=== PATIENT | female | born 1975 | race Caucasian/White ===

== ENCOUNTER → 2016-08-14 | Outpatient (CLI) | payer OTHER ==
[2016-08-14 13:11] LABS: MEAN CORPUSCULAR HEMOGLOBIN 29.6 pg (27.0-33.0); MEAN CORPUSCULAR VOLUME 87.1 fl (80.0-96.0); RED CELL DISTRIBUTION WIDTH 12.2 % (11.5-14.5); WHITE BLOOD COUNT 5.2 K/mm3 (4.0-10.0)
[2016-08-14 13:49] LABS: VITAMIN B12 LEVEL 709 PG/ML (247-911)
[2016-08-14 13:57] LABS: ALBUMIN 3.9 GM/DL (3.2-5.2); ALBUMIN/GLOBULIN RATIO 1.18 (1.00-1.93); ALKALINE PHOSPHATASE 38 U/L (45-117); ALT/SGPT 21 U/L (12-78); ANION GAP 5 MEQ/L (8-16); AST/SGOT 15 U/L (15-37); BILIRUBIN,TOTAL 0.7 MG/DL (0.2-1.0); BLOOD UREA NITROGEN 8 MG/DL (7-18); CALCIUM LEVEL 8.9 MG/DL (8.5-10.1); CARBON DIOXIDE LEVEL 29 MEQ/L (21-32); CHLORIDE LEVEL 107 MEQ/L (98-107); CHOLESTEROL LEVEL 208 MG/DL (<200); CREATININE FOR GFR 0.62 MG/DL (0.55-1.02); GLOMERULAR FILTRATION RATE > 60.0 (>58); GLUCOSE, FASTING 85 MG/DL (70-105); MAGNESIUM LEVEL 2.5 MG/DL (1.8-2.4); POTASSIUM SERUM 4.4 MEQ/L (3.5-5.1); SODIUM LEVEL 141 MEQ/L (136-145); TOTAL PROTEIN 7.2 GM/DL (6.4-8.2); TRIGLYCERIDES LEVEL 103 MG/DL (<150)
== END ==
LOC: M SMT 08:04
PROVIDERS: ATTEND Nurse Practitioner Adult Health
DX: Z00.00 Encounter for general adult medical examination without abnormal findings (principal)

== ENCOUNTER → 2017-01-17 | Outpatient (CLI) | payer OTHER ==
[2017-01-17 08:35] LABS: MEAN CORPUSCULAR HEMOGLOBIN 31.7 pg (27.0-33.0); MEAN CORPUSCULAR HGB CONC 36.1 g/dl (32.0-36.5); MEAN CORPUSCULAR VOLUME 87.7 fl (80.0-96.0); RED CELL DISTRIBUTION WIDTH 11.7 % (11.5-14.5); WHITE BLOOD COUNT 4.8 K/mm3 (4.0-10.0)
[2017-01-17 08:44] LABS: ANION GAP 5 MEQ/L (8-16); BLOOD UREA NITROGEN 7 MG/DL (7-18); CALCIUM LEVEL 8.1 MG/DL (8.5-10.1); CARBON DIOXIDE LEVEL 29 MEQ/L (21-32); CHLORIDE LEVEL 110 MEQ/L (98-107); CREATININE FOR GFR 0.59 MG/DL (0.55-1.02); GLOMERULAR FILTRATION RATE > 60.0 (>58); GLUCOSE, FASTING 85 MG/DL (70-105); SODIUM LEVEL 144 MEQ/L (136-145)
== END ==
LOC: M LAB 08:08
PROVIDERS: ATTEND Podiatrist
DX: Z00.00 Encounter for general adult medical examination without abnormal findings (principal)

== ENCOUNTER 2017-01-22 08:31 | Day surgery (SDC) | payer OTHER ==
[~2017-01-22] VITALS: Ht 152.4 cm; Wt 63.0 kg
[~2017-01-22 08:31] MED LIST: LIDOCAINE 2% INJ 100 MG/5 ML SDV (FOR ANES.) As Ordered ONE; MIDAZOLAM INJ 2 MG/2 ML VIAL (J2250) As Ordered ONE; ONDANSETRON 4MG/2ML VIAL (J2405) As Ordered ONE; PROPOFOL 200 MG/20 ML VIAL As Ordered ONE; fentaNYL 100 MCG/2 ML INJECTION (J3010) As Ordered ONE
[2017-01-22] MEDS ORDERED: LIDOCAINE 1% MDV 20ML VIAL SC PRN (08:45)
[2017-01-22] MEDS ORDERED: LR 1,000 ML IV ONE (08:45)
[2017-01-22] MEDS ORDERED: BACITRACIN PWD 50,000 UNITS VIAL As Ordered ONE (08:53)
[2017-01-22] MEDS ORDERED: dexameTHASONE 4 MG/ML 1ML VIAL (J1100) As Ordered ONE (08:53)
[2017-01-22] MEDS ORDERED: BUPIVACAINE HCL 0.25% 30 ML VIAL As Ordered ONE (08:53)
[2017-01-22] MEDS ORDERED: NEOSPORIN GU IRRIG 20 ML VIAL As Ordered ONE (08:53)
[2017-01-22 09:41] LABS: CONTROL LINE UCG INT CTR LINE PRESENT
[2017-01-22] MEDS: LIDOCAINE 2% MDV 20 ML VIAL As Ordered ONE ×2 (09:56→10:29)
[2017-01-22] MEDS: BUPIVACAINE HCL 0.5% 10 ML VIAL As Ordered ONE ×2 (09:56→10:29)
[2017-01-22] MEDS ORDERED: BUPIVACAINE HCL 0.5% 10 ML VIAL As Ordered ONE (10:08)
--- NOTE | 2017-01-22 11:34 | REP ---
LEFT FOOT, THREE VIEWS: Three portable views of left foot are performed. Metallic screw is seen in the distal 1st metatarsal. There are metallic screws in the distal tibia. The structures are well aligned. Signed by Eliseo Powell MD 01/22/2017 05:17 P
[2017-01-22 11:35] VITALS: BP 133/77
--- NOTE | 2017-01-23 07:07 | RO ---
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 POSTOPERATIVE DIAGNOSIS: Hallux valgus and metatarsus primus varus deformity of the left foot. SURGERY PERFORMED: Pilar bunionectomy with internal screw fixation. SURGEON: MURRAY Rucker ASSISTANT: None. ANESTHESIA: Local MAC HEMOSTASIS: Ankle pneumatic tourniquet at 200 mmHg for 29 minutes. HARDWARE UTILIZED: Layton DART-FIRE compression screw, 3.0 x 20 mm times one. DESCRIPTION OF OPERATION: On 01/22/2017, this 41-year-old white female was taken from her hospital room to the operating room and placed on the operating room table in a supine position. Following induction of IV sedation and local and regional anesthesia, the left lower extremity was prepped and draped in the usual aseptic manner. Attention was directed to the patient's left foot and the following procedure was performed: PILAR BUNIONECTOMY WITH INTERNAL SCREW FIXATION 3.0 mm x 20 mm TIMES ONE, LEFT FOOT: Attention was directed to the patient's left foot where there was noted to be a hallux valgus deformity. At this time, a 6 cm incision was placed over the first metatarsal phalangeal joint medial to the extensor tendon. The incision was deepened through subcutaneous tissues and all coursing venous tributaries were identified, underscored, clamped, cut, ligated, and electrocoagulated as necessary. A linear capsulotomy was then performed in the same plane as the original skin incision. The capsular and periosteal tissues were then dissected in one continuous layer, dorsally, medially, and laterally thus creating a capsular periosteal type envelop. This delivered into view the hypertrophied medial eminence which was osteotomized from distal to proximal, exiting medial to the sesamoidal groove. Dissection was carried into the first intermetatarsal space where dissection was carried down to the level of the fibular sesamoid where the conjoin tendon was sharply dissected free from the fibular sesamoid. Attention was directed to the medial surface of the first metatarsal where there was noted to be a spurring on the dorsal aspect, which was osteotomized from medial to lateral across this small spur on the dorsal aspect of the first metatarsal. A V-shaped osteotomy was then performed on the distal metaphysis of the first metatarsal with a long plantar and short dorsal wing in the standard fashion. The osteotomy was then transposed to 40% of the width of the shaft of the first metatarsal and fixated with a 3.0 x 20 mm DART-FIRE compression screw. This screw did not penetrate the inferior cartilage on direct examination. The redundant cortical spike was then osteotomized from dorsal to plantar through and through. The medial surface was rasped to a smooth contour with a hand held rasp. The wound was flushed with copious amounts of dilute bacitracin, neomycin, and polymyxin B solution. The capsular structures were then coapted and maintained utilizing #3-0 Monocryl in a simple interrupted type fashion. The subcutaneous tissues were coapted and maintained using #4-0 Monocryl in a simple interrupted type fashion. The skin incision was coapted and maintained utilizing #5-0 Monocryl in a continuous subcuticular type fashion. This was additionally reinforced with Steri-Strips. Following the completion of the surgical procedure, 5 mg of dexamethasone sodium phosphate was instilled proximal to the surgical site. Attention was directed towards bandaging where a sterile compressive bandage was applied consisting of Adaptic, 4x4s, 4x4 splints, Quoc, Kerlix, and Coban. The ankle pneumatic tourniquet was rapidly deflated and instantaneous capillary filling time was noted in digits 1-5 of the patient's left foot. The patient having apparently tolerated the surgical procedure well, was taken from the OR to the recovery room with vital signs stable and the patient afebrile for further monitoring by the anesthesia department. All surgical specimens removed during the operative procedure were sent to pathology for gross and microscopic examination. Postoperative instructions will be given upon discharge. MARLON
== END 2017-01-22 11:55 | disposition home or self-care (01) ==
LOC: M SDC 08:31
PROVIDERS: ATTEND Podiatrist
DX: M20.12 Hallux valgus (acquired), left foot (principal); K21.9 Gastro-esophageal reflux disease without esophagitis; J45.909 Unspecified asthma, uncomplicated; J30.2 Other seasonal allergic rhinitis; Z88.1 Allergy status to other antibiotic agents; Z88.8 Allergy status to other drugs, medicaments and biological substances; Z87.891 Personal history of nicotine dependence
CPT/HCPCS: 28296; 73630; 84703; 88300; 97116; C1776; J0690; J1100; J2250; J2405; J3010

== ENCOUNTER 2018-02-06 09:36 | Emergency (ER) | payer OTHER | END 2018-02-06 10:18 | disposition home or self-care (01) | LOC: M ED 09:36 | DX: S46.012A Strain of muscle(s) and tendon(s) of the rotator cuff of left shoulder, initial encounter (principal); X58.XXXA Exposure to other specified factors, initial encounter; Y92.9 Unspecified place or not applicable; Y93.9 Activity, unspecified; Y99.9 Unspecified external cause status; J45.909 Unspecified asthma, uncomplicated; J30.2 Other seasonal allergic rhinitis; Z88.0 Allergy status to penicillin; Z88.1 Allergy status to other antibiotic agents | CPT/HCPCS: 99282 ==

== ENCOUNTER → 2018-10-20 | Outpatient (REF) | payer OTHER ==
[~2018-10-20] MED LIST changes: +CYCL5TAB PO; +KETO10TAB PO; -LIDOCAINE 2% INJ 100 MG/5 ML SDV (FOR ANES.) As Ordered ONE; -MIDAZOLAM INJ 2 MG/2 ML VIAL (J2250) As Ordered ONE; -ONDANSETRON 4MG/2ML VIAL (J2405) As Ordered ONE; -PROPOFOL 200 MG/20 ML VIAL As Ordered ONE; -fentaNYL 100 MCG/2 ML INJECTION (J3010) As Ordered ONE
[2018-10-20 10:20] LABS: ALBUMIN 3.8 GM/DL (3.2-5.2); ALT/SGPT 21 U/L (12-78); BILIRUBIN,TOTAL 0.7 MG/DL (0.2-1.0); BLOOD UREA NITROGEN 8 MG/DL (7-18); CARBON DIOXIDE LEVEL 27 MEQ/L (21-32); CHLORIDE LEVEL 108 MEQ/L (98-107); CHOLESTEROL LEVEL 188 MG/DL (<200); CHOLESTEROL RISK RATIO 2.724 (<5); GLOMERULAR FILTRATION RATE > 60.0 (>58); GLUCOSE, FASTING 79 MG/DL (70-100); HDL CHOLESTEROL 69 MG/DL (>40); LDL CHOLESTEROL 101 MG/DL (<100); MAGNESIUM LEVEL 2.3 MG/DL (1.8-2.4); NON-HDL-C 119 MG/DL; POTASSIUM SERUM 4.5 MEQ/L (3.5-5.1); SODIUM LEVEL 139 MEQ/L (136-145); TOTAL PROTEIN 7.4 GM/DL (6.4-8.2); TRIGLYCERIDES LEVEL 90 MG/DL (<150)
[2018-10-20 10:39] LABS: TOTAL 25(OH) VITAMIN D 17.5 NG/ML (30.0-100.0)
[2018-10-20 10:40] LABS: VITAMIN B12 LEVEL 575 PG/ML (247-911)
== END ==
LOC: M SFHCPLAZ 08:20
PROVIDERS: ATTEND Nurse Practitioner Adult Health
DX: Z00.00 Encounter for general adult medical examination without abnormal findings (principal); R53.83 Other fatigue

== ENCOUNTER → 2019-10-25 | Outpatient (CLI) | payer OTHER ==
--- NOTE | 2019-10-25 14:41 | REPPI ---
Clinical: Pain and swelling Technique: AP, lateral, bilateral oblique and sunrise views left knee . Findings: The osseous structures and joint spaces are intact and normal. There is no evidence for acute fracture or dislocation. No joint effusion is appreciated. Surrounding soft tissues are unremarkable. No subcutaneous emphysema or radiodense foreign body. Impression: No acute fracture or dislocation. Electronically Signed by Darci Bullock MD 10/25/2019 02:32 P
== END ==
LOC: M PLAIMG 14:10
PROVIDERS: ATTEND Nurse Practitioner Adult Health
DX: M25.462 Effusion, left knee (principal)

== ENCOUNTER → 2019-10-26 | Outpatient (REF) | payer OTHER ==
[~2019-10-26] MED LIST changes: +C-251TAB PO; +D3 +TAB PO; +MAGN400C2 PO
[2019-10-26 12:11] LABS: ALBUMIN 3.7 GM/DL (3.2-5.2); ALT/SGPT 20 U/L (12-78); BILIRUBIN,TOTAL 0.5 MG/DL (0.2-1.0); BLOOD UREA NITROGEN 7 MG/DL (7-18); CALCIUM LEVEL 8.6 MG/DL (8.5-10.1); CARBON DIOXIDE LEVEL 27 MEQ/L (21-32); CHLORIDE LEVEL 108 MEQ/L (98-107); CHOLESTEROL LEVEL 184 MG/DL (<200); CHOLESTEROL RISK RATIO 3.066 (<5); CREATININE FOR GFR 0.64 MG/DL (0.55-1.30); GLOMERULAR FILTRATION RATE > 60.0 (>58); GLUCOSE, FASTING 86 MG/DL (70-100); HDL CHOLESTEROL 60 MG/DL (>40); LDL CHOLESTEROL 104 MG/DL (<100); NON-HDL-C 124 MG/DL; POTASSIUM SERUM 4.5 MEQ/L (3.5-5.1); SODIUM LEVEL 137 MEQ/L (136-145); TOTAL 25(OH) VITAMIN D 52.8 NG/ML (30.0-100.0); TOTAL PROTEIN 7.4 GM/DL (6.4-8.2); TRIGLYCERIDES LEVEL 99 MG/DL (<150)
== END ==
LOC: M SFHCPLAZ 08:03
PROVIDERS: ATTEND Nurse Practitioner Adult Health
DX: Z00.00 Encounter for general adult medical examination without abnormal findings (principal); E55.9 Vitamin D deficiency, unspecified; R53.83 Other fatigue; Z13.220 Encounter for screening for lipoid disorders

== ENCOUNTER 2019-11-11 11:47 | Emergency (ER) | payer OTHER ==
[~2019-11-11] VITALS: Ht 152.4 cm; Wt 66.0 kg
[2019-11-11 11:47] VITALS: BP 118/60
[~2019-11-11 11:47] MED LIST changes: -C-251TAB PO; -D3 +TAB PO; -MAGN400C2 PO
[2019-11-11] MEDS ORDERED: MAGN400C2 PO (12:02)
[2019-11-11] MEDS ORDERED: D3 +TAB PO (12:02)
[2019-11-11] MEDS ORDERED: C-251TAB PO (12:02)
== END 2019-11-11 13:20 | disposition home or self-care (01) ==
LOC: M ED 11:47
DX: M25.562 Pain in left knee (principal); Z88.0 Allergy status to penicillin; Z88.8 Allergy status to other drugs, medicaments and biological substances

== ENCOUNTER → 2019-11-15 | Outpatient (CLI) | payer OTHER ==
[~2019-11-15] MED LIST changes: +C-251TAB PO; +D3 +TAB PO; +MAGN400C2 PO
--- NOTE | 2019-11-15 15:39 | REPMRS ---
Patient History The patient states she has not had a clinical breast exam in over a year. Patient had first child at age 33. No known family history of cancer. Digital Woman Screen Mammo: November 15, 2019 - Exam #: [id number] Bilateral CC and MLO view(s) were taken. Technologist: Hue Gonzalez, Technologist No prior studies available for comparison. FINDINGS: The breast tissue is heterogeneously dense. This may lower the sensitivity of mammography. The Volpara volumetric breast density category is: C. There are disbursed microcalcifications in dense breast stroma. There is a dominant well-circumscribed nodular opacity in the upper outer quadrant of the right breast which merits further evaluation. This may be a cyst. It measures 2.1 cm in greatest diameter. There is no other evidence of dominant mass, architectural distortion, or grouped microcalcification typical of malignancy. 3-D tomosynthesis shows no additional findings. Assessment: BI-RADS/ACR category 0 mammogram, Incomplete: Need additional imaging evaluation and/or prior mammograms for comparison. Recommendation Ultrasound and special view mammogram of the right breast. This patient's Lifetime Breast Cancer RIsk is estimated at 13.9 %. This mammogram was interpreted with the aid of an FDA-approved computer-aided dectection system. Electronically Signed By: Derek Katz MD 11/15/19 [id number]
== END ==
LOC: M WHC 13:35
PROVIDERS: ATTEND Nurse Practitioner Adult Health
DX: R92.2 Inconclusive mammogram (principal)

== ENCOUNTER → 2020-01-11 | Outpatient (CLI) | payer OTHER ==
--- NOTE | 2020-01-19 10:28 | REP ---
RIGHT BREAST DIAGNOSTIC MAMMOGRAM 01/11/2020 AND RIGHT BREAST ULTRASOUND 01/16/2020 COMPARISON: Comparison mammogram 11/15/2019. HISTORY: No family history of breast cancer. Tyrer-Cuzick lifetime risk of breast cancer 13.9%. FINDINGS: Spot compression views of the upper outer quadrant of the right breast were performed including a right ML tomographic sequence. There is confirmed a smoothly marginated nodule in the posterior upper outer quadrant of the right breast measuring about 2 cm in diameter. There is adjacent dense fibroglandular tissue with dispersed diffuse small calcifications throughout the visualized right breast. Real-time sonographic evaluation of the right breast was performed in the upper outer quadrant. A cyst is seen at the location of the nodule on the mammogram, which appears benign. The cyst measures 1.7 x 1.3 x 2.0 cm. IMPRESSION: ACR 2 benign. Smoothly marginated nodule confirmed in the upper outer quadrant of the right breast posteriorly. This corresponds to a benign cyst on ultrasound examination of this area. Routine follow up bilateral mammogram is recommended in October 2020. BIRADS 2: BI-RADS/ACR category 2 mammogram. Benign findings. This mammogram was interpreted with the aid of an FDA approved computer aided detection system. Send letter 1. MARLON
== END ==
LOC: M WHC 15:32
PROVIDERS: ATTEND Nurse Practitioner Adult Health
DX: N63.11 Unspecified lump in the right breast, upper outer quadrant (principal)
CPT/HCPCS: 77065; G0279

== ENCOUNTER → 2020-01-16 | Outpatient (CLI) | payer OTHER ==
--- NOTE | 2020-01-19 10:26 | REP ---
RIGHT BREAST DIAGNOSTIC MAMMOGRAM 01/11/2020 AND RIGHT BREAST ULTRASOUND 01/16/2020 COMPARISON: Comparison mammogram 11/15/2019. HISTORY: No family history of breast cancer. Tyrer-Cuzick lifetime risk of breast cancer 13.9%. FINDINGS: Spot compression views of the upper outer quadrant of the right breast were performed including a right ML tomographic sequence. There is confirmed a smoothly marginated nodule in the posterior upper outer quadrant of the right breast measuring about 2 cm in diameter. There is adjacent dense fibroglandular tissue with dispersed diffuse small calcifications throughout the visualized right breast. Real-time sonographic evaluation of the right breast was performed in the upper outer quadrant. A cyst is seen at the location of the nodule on the mammogram, which appears benign. The cyst measures 1.7 x 1.3 x 2.0 cm. IMPRESSION: ACR 2 benign. Smoothly marginated nodule confirmed in the upper outer quadrant of the right breast posteriorly. This corresponds to a benign cyst on ultrasound examination of this area. Routine follow up bilateral mammogram is recommended in October 2020. This mammogram was interpreted with the aid of an FDA approved computer aided detection system. Send letter 1. MARLON
== END ==
LOC: M WHC 15:33
PROVIDERS: ATTEND Nurse Practitioner Adult Health
DX: N63.11 Unspecified lump in the right breast, upper outer quadrant (principal)

== ENCOUNTER → 2020-11-12 | Outpatient (CLI) | payer OTHER ==
[2020-11-12 12:36] LABS: ALBUMIN 3.7 GM/DL (3.2-5.2); ALT/SGPT 28 U/L (12-78); BILIRUBIN,TOTAL 0.6 MG/DL (0.2-1.0); BLOOD UREA NITROGEN 8 MG/DL (7-18); CALCIUM LEVEL 8.5 MG/DL (8.5-10.1); CARBON DIOXIDE LEVEL 29 MEQ/L (21-32); CHLORIDE LEVEL 106 MEQ/L (98-107); CHOLESTEROL LEVEL 205 MG/DL (<200); CHOLESTEROL RISK RATIO 3.059 (<5); CREATININE FOR GFR 0.56 MG/DL (0.55-1.30); GLOMERULAR FILTRATION RATE > 60.0 (>58); GLUCOSE, FASTING 88 MG/DL (70-100); HDL CHOLESTEROL 67 MG/DL (>40); LDL CHOLESTEROL 118 MG/DL (<100); NON-HDL-C 138 MG/DL; POTASSIUM SERUM 4.1 MEQ/L (3.5-5.1); SODIUM LEVEL 138 MEQ/L (136-145); THYROID STIMULATING HORMONE 0.958 uIU/ML (0.358-3.740); TOTAL 25(OH) VITAMIN D 40.4 NG/ML (30.0-100.0); TRIGLYCERIDES LEVEL 99 MG/DL (<150)
== END ==
LOC: M PLALAB 07:49
PROVIDERS: ATTEND Nurse Practitioner Adult Health
DX: Z00.00 Encounter for general adult medical examination without abnormal findings (principal); E55.9 Vitamin D deficiency, unspecified; Z13.220 Encounter for screening for lipoid disorders; R53.83 Other fatigue

== ENCOUNTER → 2021-02-22 | Outpatient (REF) | payer OTHER ==
[2021-02-22 17:09] LABS: APPEARANCE, URINE CLOUDY (CLEAR); BACTERIA, URINE AUTO NEGATIVE (NEGATIVE); BILIRUBIN, URINE AUTO NEGATIVE (NEGATIVE); BLOOD, URINE BLOOD 3+ (NEGATIVE); COLOR, URINE YELLOW (YELLOW); GLUCOSE, URINE (UA) AUTO NEGATIVE (NEGATIVE); KETONE, URINE AUTO NEGATIVE (NEGATIVE); LEUKOCYTE ESTERASE, URINE AUTO NEGATIVE (NEGATIVE); NITRITE, URINE AUTO NEGATIVE (NEGATIVE); PROTEIN, URINE AUTO NEGATIVE (NEGATIVE); RBC, URINE AUTO TNTC /HPF (0-3); SPECIFIC GRAVITY URINE AUTO 1.005 (1.002-1.035); SQUAMOUS EPITHELIAL CELL UR AU 1 /HPF (0-6); UROBILINOGEN, URINE AUTO 0.2 mg/dL (0.0-2.0); WBC, URINE AUTO 2 /HPF (0-3)
== END ==
LOC: M LAB REF 16:56
PROVIDERS: ATTEND Physician Assistant Medical
DX: N39.0 Urinary tract infection, site not specified (principal)

== ENCOUNTER → 2021-11-20 | Outpatient (CLI) | payer OTHER ==
[2021-11-20 11:30] LABS: ALT/SGPT 20 U/L (12-78); BLOOD UREA NITROGEN 7 MG/DL (7-18); CALCIUM LEVEL 9.6 MG/DL (8.5-10.1); CARBON DIOXIDE LEVEL 24 MEQ/L (21-32); CHLORIDE LEVEL 112 MEQ/L (98-107); CREATININE FOR GFR 0.63 MG/DL (0.55-1.30); GLOMERULAR FILTRATION RATE > 60.0 (>58); GLUCOSE, FASTING 91 MG/DL (70-100); POTASSIUM SERUM 5.3 MEQ/L (3.5-5.1); SODIUM LEVEL 140 MEQ/L (136-145)
[2021-11-20 11:31] LABS: ALBUMIN 3.9 GM/DL (3.2-5.2); BILIRUBIN,TOTAL 0.7 MG/DL (0.2-1.0); CHOLESTEROL LEVEL 169 MG/DL (<200); CHOLESTEROL RISK RATIO 2.283 (<5); HDL CHOLESTEROL 74 MG/DL (>40); LDL CHOLESTEROL 82 MG/DL (<100); NON-HDL-C 95 MG/DL; TOTAL PROTEIN 7.2 GM/DL (6.4-8.2); TRIGLYCERIDES LEVEL 64 MG/DL (<150)
[2021-11-20 11:39] LABS: TOTAL 25(OH) VITAMIN D 53.2 NG/ML (30.0-100.0)
== END ==
LOC: M PLALAB 07:56
PROVIDERS: ATTEND Nurse Practitioner Adult Health
DX: Z00.00 Encounter for general adult medical examination without abnormal findings (principal); Z13.220 Encounter for screening for lipoid disorders; E55.9 Vitamin D deficiency, unspecified

== ENCOUNTER → 2021-11-20 | Outpatient (CLI) | payer OTHER ==
[2021-11-20 10:59] LABS: HEMATOCRIT 41.7 % (36.0-47.0); HEMOGLOBIN 13.9 g/dl (12.0-15.5); LYMPH # 1.5 10^3/uL (1.5-5.0); LYMPH % 33.9 % (24.0-44.0); MEAN CORPUSCULAR HEMOGLOBIN 28.7 pg (27.0-33.0); MEAN CORPUSCULAR HGB CONC 33.3 g/dl (32.0-36.5); MONO # 0.5 10^3/uL (0.0-0.8); MONO % 10.5 % (2.0-8.0); NEUTROPHILS # 2.5 10^3/uL (1.5-8.5); NEUTROPHILS % 55.4 % (36.0-66.0); PLATELET COUNT, AUTOMATED 234 10^3/uL (150-450); RED BLOOD COUNT 4.85 10^6/uL (4.00-5.40); WHITE BLOOD COUNT 4.5 10^3/uL (4.0-10.0)
[2021-11-20 11:42] LABS: ALBUMIN 4.1 GM/DL (3.2-5.2); ALT/SGPT 17 U/L (12-78); BILIRUBIN,TOTAL 0.8 MG/DL (0.2-1.0); BLOOD UREA NITROGEN 7 MG/DL (7-18); CALCIUM LEVEL 9.4 MG/DL (8.5-10.1); CARBON DIOXIDE LEVEL 24 MEQ/L (21-32); CHLORIDE LEVEL 111 MEQ/L (98-107); CHOLESTEROL LEVEL 172 MG/DL (<200); CHOLESTEROL RISK RATIO 2.233 (<5); CREATININE FOR GFR 0.67 MG/DL (0.55-1.30); ESTRADIOL 194.1 PG/ML; FOLLICLE STIMULATING HORMONE 3.8 mIU/mL; FREE T4 0.98 NG/DL (0.76-1.46); GLOMERULAR FILTRATION RATE > 60.0 (>58); GLUCOSE, FASTING 90 MG/DL (70-100); HDL CHOLESTEROL 77 MG/DL (>40); LDL CHOLESTEROL 82 MG/DL (<100); LUTEINIZING HORMONE 3.9 mIU/mL; NON-HDL-C 95 MG/DL; POTASSIUM SERUM 4.2 MEQ/L (3.5-5.1); PROGESTERONE 9.91 NG/ML; SODIUM LEVEL 142 MEQ/L (136-145); TOTAL 25(OH) VITAMIN D 58.3 NG/ML (30.0-100.0); TOTAL PROTEIN 7.4 GM/DL (6.4-8.2); TRIGLYCERIDES LEVEL 66 MG/DL (<150)
[2021-11-21 11:08] LABS: TESTOSTERONE FREE (DIRECT) 1.8 pg/mL (0.0-4.2)
== END ==
LOC: M PLALAB 07:58
PROVIDERS: ATTEND Internal Medicine
DX: N95.1 Menopausal and female climacteric states (principal); E03.9 Hypothyroidism, unspecified; E78.2 Mixed hyperlipidemia; E55.9 Vitamin D deficiency, unspecified

== ENCOUNTER → 2022-04-24 | Outpatient (REF) | payer OTHER | LOC: M PLALAB 16:22 | PROVIDERS: ATTEND Nurse Practitioner Family | DX: R87.610 Atypical squamous cells of undetermined significance on cytologic smear of cervix (ASC-US) (principal); Z12.4 Encounter for screening for malignant neoplasm of cervix | CPT/HCPCS: 87624; G0123 ==

== ENCOUNTER → 2022-05-04 | Outpatient (CLI) | payer OTHER | LOC: M WHC 14:27 | PROVIDERS: ATTEND Nurse Practitioner Family | DX: Z12.31 Encounter for screening mammogram for malignant neoplasm of breast (principal); R92.2 Inconclusive mammogram ==

== ENCOUNTER → 2022-06-03 | Outpatient (CLI) | payer OTHER | LOC: M WHC 07:32 | PROVIDERS: ATTEND Nurse Practitioner Family | DX: N60.01 Solitary cyst of right breast (principal); N60.02 Solitary cyst of left breast ==

== ENCOUNTER → 2022-07-02 | Outpatient (CLI) | payer OTHER ==
[~2022-07-02] MED LIST changes: +E-Z-GAS II EFFERVESCENT PACKET (SODIUM BICARB./CITRIC ACID/SIMETHICONE) As Ordered ONE; +E-Z-HD 98% w/w 340GM SUSP BTL As Ordered ONE; +E-Z-PAQUE 96% w/w SUSP 176GM BTL As Ordered ONE
== END ==
LOC: M RAD 09:09
PROVIDERS: ATTEND Nurse Practitioner Adult Health
DX: K21.9 Gastro-esophageal reflux disease without esophagitis (principal); K44.9 Diaphragmatic hernia without obstruction or gangrene

== ENCOUNTER 2022-10-22 08:32 | Day surgery (SDC) | payer OTHER ==
[~2022-10-22] VITALS: Ht 152.4 cm; Wt 60.8 kg
[~2022-10-22 08:32] MED LIST changes: +D 101000 PO; -E-Z-GAS II EFFERVESCENT PACKET (SODIUM BICARB./CITRIC ACID/SIMETHICONE) As Ordered ONE; -E-Z-HD 98% w/w 340GM SUSP BTL As Ordered ONE; -E-Z-PAQUE 96% w/w SUSP 176GM BTL As Ordered ONE; +NS 1,000 ML IV ONE; +PROB250C PO; +PROBCAP14 PO; +VITA100093 PO; +VITAMIN; +[UNRECOGNIZED DRUG - CODE] PO
[2022-10-22] MEDS ORDERED: propofoL 200 MG/20 ML VIAL As Ordered ONE (09:33)
[2022-10-22] MEDS ORDERED: fentaNYL 100 MCG/2 ML INJECTION As Ordered ONE (09:33)
[2022-10-22] MEDS ORDERED: LIDOCAINE 2% 100MG/5ML SDV (FOR ANES.) As Ordered ONE (09:33)
[2022-10-22 10:50] VITALS: BP 116/61; TEMP 97; O2SAT 100
== END 2022-10-22 10:53 | disposition home or self-care (01) ==
LOC: M OPP 08:32
PROVIDERS: ATTEND Internal Medicine Gastroenterology
DX: K29.70 Gastritis, unspecified, without bleeding (principal); K22.2 Esophageal obstruction; K22.89 Other specified disease of esophagus; Z87.891 Personal history of nicotine dependence; Z88.1 Allergy status to other antibiotic agents
CPT/HCPCS: 43239; 43249; 88305; J3010

== ENCOUNTER → 2023-02-17 | Outpatient (CLI) | payer OTHER ==
[~2023-02-17] MED LIST changes: -NS 1,000 ML IV ONE; -VITAMIN; +VITAMIN PO
[2023-02-17 12:30] LABS: HEMATOCRIT 42.8 % (36.0-47.0); HEMOGLOBIN 14.5 g/dl (12.0-15.5); LYMPH # 1.8 10^3/uL (1.5-5.0); LYMPH % 26.9 % (24.0-44.0); MEAN CORPUSCULAR HEMOGLOBIN 29.9 pg (27.0-33.0); MEAN CORPUSCULAR HGB CONC 33.9 g/dl (32.0-36.5); MEAN CORPUSCULAR VOLUME 88.2 fl (80.0-96.0); MONO # 0.5 10^3/uL (0.0-0.8); MONO % 7.8 % (2.0-8.0); NEUTROPHILS # 4.3 10^3/uL (1.5-8.5); PLATELET COUNT, AUTOMATED 244 10^3/uL (150-450); RED BLOOD COUNT 4.85 10^6/uL (4.00-5.40); WHITE BLOOD COUNT 6.6 10^3/uL (4.0-10.0)
[2023-02-17 12:57] LABS: ALBUMIN 4.1 G/DL (3.2-5.2); ALKALINE PHOSPHATASE 45 U/L (46-116); ALT/SGPT 28 U/L (7.0-40); AST/SGOT 23 U/L (<34); BILIRUBIN,TOTAL 0.7 MG/DL (0.3-1.2); BLOOD UREA NITROGEN 7 MG/DL (9-23); CALCIUM LEVEL 9.1 MG/DL (8.5-10.1); CARBON DIOXIDE LEVEL 26 MMOL/L (20-31); CHLORIDE LEVEL 105 MMOL/L (98-107); CHOLESTEROL LEVEL 201 MG/DL (<200); CHOLESTEROL RISK RATIO 2.63 (<5); CREATININE FOR GFR 0.58 MG/DL (0.55-1.30); GLOMERULAR FILTRATION RATE > 60.0 (>58); GLUCOSE, FASTING 75 MG/DL (60-100); HDL CHOLESTEROL 76.4 MG/DL (>40); LDL CHOLESTEROL 105.2 MG/DL (<100); NON-HDL-C 124.6 MG/DL; POTASSIUM SERUM 4.4 MMOL/L (3.5-5.1); SODIUM LEVEL 141 MMOL/L (136-145); TOTAL PROTEIN 7.5 G/DL (5.7-8.2); TRIGLYCERIDES LEVEL 97 MG/DL (<150)
[2023-02-17 13:00] LABS: THYROID STIMULATING HORMONE 1.318 uIU/ML (0.55-4.78)
[2023-02-17 13:01] LABS: FOLLICLE STIMULATING HORMONE 7.4 mIU/ML; TOTAL 25(OH) VITAMIN D 63.1 NG/ML (20.0-100.0)
[2023-02-17 13:02] LABS: FREE T3 3.5 PG/ML (2.3-4.2)
[2023-02-17 13:03] LABS: FREE T4 0.98 NG/DL (0.89-1.76)
[2023-02-18 16:09] LABS: TESTOSTERONE FREE (DIRECT) 3.5 pg/mL (0.0-4.2)
== END ==
LOC: M LAB 01-22 06:33 → M PLALAB 07:47 → M LAB 07:47
PROVIDERS: ATTEND Internal Medicine
DX: N95.1 Menopausal and female climacteric states (principal)

== ENCOUNTER 2023-02-19 11:17 | Day surgery (SDC) | payer OTHER ==
[~2023-02-19] VITALS: Ht 152.4 cm; Wt 61.8 kg
[~2023-02-19 11:17] MED LIST changes: +NS 1,000 ML IV ONE
[2023-02-19] MEDS ORDERED: fentaNYL 100 MCG/2 ML INJECTION As Ordered ONE (12:36)
[2023-02-19] MEDS ORDERED: LIDOCAINE 2% MDV 20ML VIAL As Ordered ONE ×2 (12:36→13:13)
[2023-02-19] MEDS ORDERED: propofoL 200 MG/20 ML VIAL As Ordered ONE ×2 (12:36→13:13)
[2023-02-19 13:22] VITALS: TEMP 97.2
[2023-02-19 13:43] VITALS: BP 99/56; O2SAT 99
== END 2023-02-19 13:57 | disposition home or self-care (01) ==
LOC: M OPP 11:17
PROVIDERS: ATTEND Internal Medicine Gastroenterology
DX: K22.89 Other specified disease of esophagus (principal); K22.2 Esophageal obstruction; R13.10 Dysphagia, unspecified; Z88.1 Allergy status to other antibiotic agents; Z88.8 Allergy status to other drugs, medicaments and biological substances
CPT/HCPCS: 43239; 43249; 88305; J3010

== ENCOUNTER → 2023-08-23 | Outpatient (REF) | payer OTHER ==
[~2023-08-23] MED LIST changes: -NS 1,000 ML IV ONE
== END ==
LOC: M SFHCWAGY 17:44
PROVIDERS: ATTEND Nurse Practitioner Family
DX: Z12.4 Encounter for screening for malignant neoplasm of cervix (principal); Z11.51 Encounter for screening for human papillomavirus (HPV)

== ENCOUNTER → 2023-08-23 | Outpatient (CLI) | payer OTHER | LOC: M WHC 14:24 | PROVIDERS: ATTEND Nurse Practitioner Family | DX: Z12.31 Encounter for screening mammogram for malignant neoplasm of breast (principal) ==

== ENCOUNTER → 2023-10-20 | Outpatient (REF) | payer OTHER ==
[2023-10-20 18:33] LABS: URINE PREG TEST NEGATIVE (NEGATIVE)
== END ==
LOC: M SFHCWAGY 17:00
PROVIDERS: ATTEND Nurse Practitioner Family
DX: R10.2 Pelvic and perineal pain (principal)

== ENCOUNTER → 2023-11-19 | Outpatient (CLI) | payer OTHER ==
[2023-11-19 10:56] LABS: HEMATOCRIT 44.1 % (36.0-47.0); HEMOGLOBIN 15.2 g/dl (12.0-15.5); MEAN CORPUSCULAR HEMOGLOBIN 29.9 pg (27.0-33.0); MEAN CORPUSCULAR HGB CONC 34.5 g/dl (32.0-36.5); MEAN CORPUSCULAR VOLUME 86.8 fl (80.0-96.0); PLATELET COUNT, AUTOMATED 207 10^3/uL (150-450); RED BLOOD COUNT 5.08 10^6/uL (4.00-5.40); WHITE BLOOD COUNT 4.9 10^3/uL (4.0-10.0)
== END ==
LOC: M PLALAB 07:24
PROVIDERS: ATTEND Nurse Practitioner Adult Health
DX: Z00.01 Encounter for general adult medical examination with abnormal findings (principal); S63.041A Subluxation of carpometacarpal joint of right thumb, initial encounter; E55.9 Vitamin D deficiency, unspecified; Z13.220 Encounter for screening for lipoid disorders; N92.6 Irregular menstruation, unspecified; M18.11 Unilateral primary osteoarthritis of first carpometacarpal joint, right hand

== ENCOUNTER → 2023-11-19 | Outpatient (CLI) | payer OTHER ==
[2023-11-19 10:57] LABS: BASO % 0.2 % (0.0-1.0); HEMATOCRIT 43.9 % (36.0-47.0); LYMPH # 1.8 10^3/uL (1.5-5.0); LYMPH % 35.5 % (24.0-44.0); MEAN CORPUSCULAR HEMOGLOBIN 29.8 pg (27.0-33.0); MEAN CORPUSCULAR HGB CONC 34.2 g/dl (32.0-36.5); MEAN CORPUSCULAR VOLUME 87.3 fl (80.0-96.0); MONO # 0.5 10^3/uL (0.0-0.8); MONO % 10.6 % (2.0-8.0); NEUTROPHILS # 2.7 10^3/uL (1.5-8.5); NEUTROPHILS % 53.5 % (36.0-66.0); PLATELET COUNT, AUTOMATED 209 10^3/uL (150-450); RED BLOOD COUNT 5.03 10^6/uL (4.00-5.40)
[2023-11-19 11:13] LABS: ALBUMIN 3.7 G/DL (3.2-5.2); ALKALINE PHOSPHATASE 42 U/L (46-116); ALT/SGPT 19 U/L (7.0-40); AST/SGOT 13 U/L (<34); BILIRUBIN,TOTAL 0.8 MG/DL (0.3-1.2); BLOOD UREA NITROGEN 8 MG/DL (9-23); CALCIUM LEVEL 9.3 MG/DL (8.5-10.1); CARBON DIOXIDE LEVEL 27 MMOL/L (20-31); CHLORIDE LEVEL 106 MMOL/L (98-107); CHOLESTEROL LEVEL 203 MG/DL (<200); CHOLESTEROL RISK RATIO 2.98 (<5); CREATININE FOR GFR 0.66 MG/DL (0.55-1.30); ESTRADIOL 310.7 PG/ML; FOLLICLE STIMULATING HORMONE 6.1 mIU/ML; FREE T3 3.4 PG/ML (2.3-4.2); FREE T4 0.98 NG/DL (0.89-1.76); GLOMERULAR FILTRATION RATE > 60.0 (>51); GLUCOSE, FASTING 82 MG/DL (60-100); HDL CHOLESTEROL 67.9 MG/DL (>40); LDL CHOLESTEROL 108.1 MG/DL (<100); LUTEINIZING HORMONE 10.4 mIU/ML; NON-HDL-C 135.1 MG/DL; POTASSIUM SERUM 4.6 MMOL/L (3.5-5.1); PROGESTERONE 10.88 NG/ML; SODIUM LEVEL 139 MMOL/L (136-145); THYROID STIMULATING HORMONE 1.693 uIU/ML (0.55-4.78); TOTAL 25(OH) VITAMIN D 33.4 NG/ML (20.0-100.0); TRIGLYCERIDES LEVEL 135 MG/DL (<150)
[2023-11-23 20:57] LABS: TESTOSTERONE FREE (DIRECT) 1.6 pg/mL (0.1-6.4)
== END ==
LOC: M PLALAB 07:22
PROVIDERS: ATTEND Internal Medicine
DX: D64.9 Anemia, unspecified (principal); E78.2 Mixed hyperlipidemia; E03.9 Hypothyroidism, unspecified; E55.9 Vitamin D deficiency, unspecified; R89.1 Abnormal level of hormones in specimens from other organs, systems and tissues; N95.9 Unspecified menopausal and perimenopausal disorder

== ENCOUNTER → 2023-12-08 | Outpatient (CLI) | payer OTHER | LOC: M WHC 14:16 | PROVIDERS: ATTEND Nurse Practitioner Family | DX: R10.2 Pelvic and perineal pain (principal); D25.9 Leiomyoma of uterus, unspecified ==

== ENCOUNTER → 2024-03-10 | Outpatient (CLI) | payer OTHER ==
[~2024-03-10] MED LIST changes: -CYCL5TAB PO; +CYCL5TAB4 PO
[2024-03-10 11:45] LABS: ALBUMIN 3.5 G/DL (3.2-5.2); ALKALINE PHOSPHATASE 38 U/L (35-104); ALT/SGPT 21 U/L (7.0-40); AST/SGOT 16 U/L (<34); BILIRUBIN,TOTAL 0.6 MG/DL (0.3-1.2); BLOOD UREA NITROGEN 6 MG/DL (9-23); CALCIUM LEVEL 9.2 MG/DL (8.5-10.1); CARBON DIOXIDE LEVEL 28 MMOL/L (20-31); CHLORIDE LEVEL 105 MMOL/L (98-107); CHOLESTEROL LEVEL 200 MG/DL (<200); CHOLESTEROL RISK RATIO 2.91 (<5); CREATININE FOR GFR 0.59 MG/DL (0.55-1.30); GLOMERULAR FILTRATION RATE > 60.0 (>51); GLUCOSE, FASTING 87 MG/DL (60-100); HDL CHOLESTEROL 68.7 MG/DL (>40); LDL CHOLESTEROL 110.3 MG/DL (<100); NON-HDL-C 131.3 MG/DL; SODIUM LEVEL 138 MMOL/L (136-145); TOTAL PROTEIN 6.7 G/DL (5.7-8.2); TRIGLYCERIDES LEVEL 105 MG/DL (<150)
[2024-03-10 11:46] LABS: ESTRADIOL 557.2 PG/ML
[2024-03-10 11:47] LABS: PROGESTERONE 0.67 NG/ML; TOTAL 25(OH) VITAMIN D 33.3 NG/ML (20.0-100.0)
[2024-03-10 11:53] LABS: BASO % 0.2 % (0.0-1.0); HEMATOCRIT 41.8 % (36.0-47.0); HEMOGLOBIN 14.1 g/dl (12.0-15.5); LYMPH # 1.7 10^3/uL (1.5-5.0); LYMPH % 32.9 % (24.0-44.0); MEAN CORPUSCULAR HGB CONC 33.7 g/dl (32.0-36.5); MEAN CORPUSCULAR VOLUME 88.9 fl (80.0-96.0); MONO # 0.6 10^3/uL (0.0-0.8); MONO % 11.2 % (2.0-8.0); NEUTROPHILS # 2.8 10^3/uL (1.5-8.5); NEUTROPHILS % 55.5 % (36.0-66.0); PLATELET COUNT, AUTOMATED 217 10^3/uL (150-450)
[2024-03-17 17:48] LABS: TESTOSTERONE FREE (DIRECT) 1.8 pg/mL (0.1-6.4)
== END ==
LOC: M PLALAB 07:12
PROVIDERS: ATTEND Internal Medicine
DX: D64.9 Anemia, unspecified (principal); E78.2 Mixed hyperlipidemia; E03.9 Hypothyroidism, unspecified; E55.9 Vitamin D deficiency, unspecified; R89.1 Abnormal level of hormones in specimens from other organs, systems and tissues

== ENCOUNTER 2024-06-29 11:59 | Day surgery (SDC) | payer OTHER ==
[~2024-06-29] VITALS: Ht 152.4 cm; Wt 54.5 kg
[~2024-06-29 11:59] MED LIST changes: +LIDOCAINE 2% 100MG/5ML SDV (FOR ANES.) As Ordered ONE; +propofoL 200 MG/20 ML VIAL As Ordered ONE
[2024-06-29] MEDS ORDERED: GLYCOPYRROLATE INJ 0.2 MG/ML 2 ML VIAL As Ordered ONE (12:56)
[2024-06-29 13:42] VITALS: TEMP 97.2
[2024-06-29 14:10] VITALS: BP 100/59; O2SAT 96
== END 2024-06-29 14:35 | disposition home or self-care (01) ==
LOC: M OPP 11:59
PROVIDERS: ATTEND Internal Medicine Gastroenterology
DX: R13.10 Dysphagia, unspecified (principal); K22.2 Esophageal obstruction; Z88.1 Allergy status to other antibiotic agents; Z12.11 Encounter for screening for malignant neoplasm of colon
CPT/HCPCS: 43249; 45378; 88305; J1596

== ENCOUNTER → 2024-12-15 | Outpatient (CLI) | payer OTHER ==
[~2024-12-15] MED LIST changes: -LIDOCAINE 2% 100MG/5ML SDV (FOR ANES.) As Ordered ONE; -propofoL 200 MG/20 ML VIAL As Ordered ONE
[2024-12-15 17:12] LABS: BASO # 0.0 10^3/uL (0.0-0.2); BASO % 0.2 % (0.0-1.0); EOS # 0.0 10^3/uL (0.0-0.5); EOS % 0.0 % (0.0-3.0); LYMPH # 2.8 10^3/uL (1.5-5.0); LYMPH % 48.3 % (24.0-44.0); MONO # 0.7 10^3/uL (0.0-0.8); MONO % 12.2 % (2.0-8.0); NEUTROPHILS # 2.2 10^3/uL (1.5-8.5); NEUTROPHILS % 39.1 % (36.0-66.0); PLATELET COUNT, AUTOMATED 220 10^3/uL (150-450)
[2024-12-15 17:35] LABS: ALT/SGPT 28 U/L (7.0-40); AST/SGOT 23 U/L (<34); CALCIUM LEVEL 9.8 MG/DL (8.5-10.1); CARBON DIOXIDE LEVEL 30 MMOL/L (20-31); CHLORIDE LEVEL 104 MMOL/L (98-107); CHOLESTEROL LEVEL 228 MG/DL (<200); CHOLESTEROL RISK RATIO 3.25 (<5); CREATININE FOR GFR 0.73 MG/DL (0.55-1.30); GLOMERULAR FILTRATION RATE > 90.0 (>51); LDL CHOLESTEROL 124.6 MG/DL (<100); NON-HDL-C 158.0 MG/DL; POTASSIUM SERUM 4.4 MMOL/L (3.5-5.1); SODIUM LEVEL 142 MMOL/L (136-145); TRIGLYCERIDES LEVEL 167 MG/DL (<150)
[2024-12-15 17:36] LABS: TOTAL 25(OH) VITAMIN D 26.6 NG/ML (20.0-100.0)
== END ==
LOC: M PLAIMG 15:07
PROVIDERS: ATTEND Internal Medicine
DX: Z00.00 Encounter for general adult medical examination without abnormal findings (principal); Z13.220 Encounter for screening for lipoid disorders; M19.90 Unspecified osteoarthritis, unspecified site